=== PATIENT | female | born 1960 | race Caucasian/White ===

== ENCOUNTER 2016-09-10 07:05 | Day surgery (SDC) | payer OTHER ==
[~2016-09-10] VITALS: Ht 162.6 cm; Wt 74.8 kg
[~2016-09-10 07:05] MED LIST: 0.9% Sodium Chloride 1,000 ML IV SCH; ASPI-973 PO; CHOL10008 PO; OMEG-38 PO; OMEG500C PO; ONDA4SOL2 PO; SIMV10TA4 PO; Sodium Chloride LOK Flush 10 mL Syringe IV PRN; fentaNYL-PF 50 mCg/mL 2 mL Inj IVPUSH PRN
[2016-09-10 07:37] VITALS: BP 110/69; PULSE 70; RESP 14; O2SAT 100
[2016-09-10 08:34] VITALS: BP 96/65; PULSE 57; RESP 16; O2SAT 100
[2016-09-10 08:44] VITALS: BP 116/76; PULSE 46; RESP 16; O2SAT 99
[2016-09-10 08:53] VITALS: BP 119/70; PULSE 40; RESP 16; O2SAT 100
--- NOTE | 2016-09-10 08:58 | ENDO ---
[address] [address] ENDOSCOPY PROCEDURE PATIENT: NIXON PRITCHETT : 1960 MR#: [id number] ADMIT: 09/10/2016 JOB ID: [id number] PRIMARY PROVIDER: Stef Abbott MD PROCEDURE: Colonoscopy with cold forceps polypectomy and hot snare polypectomy. INDICATIONS: A 56-year-old female with a personal history of adenomatous colon polyp, returning for surveillance. EQUIPMENT: Joppel-H190-L. SEDATION: 5 mg Versed, 100 mcg fentanyl. COMPLICATIONS: None identified. BOWEL PREPARATION: Fair. PROCEDURE INFORMATION: After the risks and benefits were explained, written and verbal informed consent was obtained. The patient was brought into the endoscopy suite and placed into the left lateral decubitus position. Sedation was achieved using the above-stated medications with the addition of oxygen via nasal cannula. A digital rectal examination was accomplished. No significant pathology appreciated. The scope was introduced into the rectum and advanced to the cecum as identified by the appendiceal orifice and ileocecal valve. The scope was slowly withdrawn to carefully examine the mucosa for any defects or lesions. Multiple direct views were made through the dentate line for exclusion of pathology. The colon was decompressed, the scope removed from the patient who tolerated the procedure well. FINDINGS: There was a diminutive polyp in the mid colon, probably somewhere in the transverse, removed with cold forceps. There was a much more challenging flat polyp opposite the ileocecal valve in the proximal cecum that was addressed using the Jumbo snare. This polyp was a little difficult to fully define and quite subtle visually. It was extremely difficult to get the snare on top of this area, in that the patient had a fairly redundant bowel and we had a lot of extra scope in to arrive at this location. At the end of our polypectomy, it was not possible to say with complete confidence that all of it had been removed. This polyp probably measured somewhere in the 8-10 mm range in maximum dimension. ENDOSCOPIC DIAGNOSES: 1. Cecal polyp. 2. Colon polyp. RECOMMENDATIONS: 1. Await histopathology. 2. If the polyp in the cecum is confirmed adenomatous, I would recommend a repeat colonoscopy in about six months to confirm that this has been completely resected (again, this was just opposite the ileocecal valve opening in the proximal cecum).
[2016-09-10 10:50] LABS: Magnesium 2.1 mg/dL (1.6-2.6)
--- NOTE | 2016-09-11 15:00 | PATH ---
SURGICAL PATHOLOGY Attending Physician:Latoya Shea CASE STATUS: Signed Out PATIENT NAME: NIXON PRITCHETT PID: [id number] : 1960 DATE COLLECTED:09/10/2016 21:40 SPECIMEN: 1: Colon, Biopsy 2: Colon, Biopsy CLINICAL HISTORY: PERSONAL HISTORY OF POLYPS 1). COLON POLYP 2). CECAL POLYP X1 FINAL DIAGNOSIS: 1. Colon Polyp: Tubular adenoma. 2. Cecal Polyp x1: Benign polypoid mucosa with focal active inflammation. Negative for dysplasia and malignancy. Multiple microscopic levels examined. ICD10: D12.6 K52.9 GROSS DESCRIPTION: The specimen is received in two formalin filled containers labeled with the patient's name. 1). The specimen is sublabeled "colon polyp" and consists of a 0.2 x 0.2 x 0.2 CM portion of tissue which is entirely submitted in cassette 1A. 2). The specimen is sublabeled "cecal polyp" and consists of a 0.6 x 0.4 x 0.3 CM portion of tissue which is entirely submitted an cassette 2A. 09/10/2016 [facility] MICRO DESCRIPTION: Please see diagnosis. ICD-9 CODES: CPT CODES: 1: 50615 2: 45827 Electronically Signed Out Jill Toney MD [facility] [address], [place] [address] Technical component performed at [facility], [address] [place] [address] [address], [place], [address]
== END 2016-09-10 23:59 | disposition home or self-care (01) ==
LOC: END 07:05
PROVIDERS: ATTEND Internal Medicine Gastroenterology
DX: Z12.11 Encounter for screening for malignant neoplasm of colon (principal); D12.3 Benign neoplasm of transverse colon; K63.5 Polyp of colon; Z86.010 Personal history of colon polyps; E78.2 Mixed hyperlipidemia; F41.8 Other specified anxiety disorders; E80.4 Gilbert syndrome; Z79.82 Long term (current) use of aspirin
CPT/HCPCS: 36415; 45380; 45385; 80048; 83735; 93005; 99153; G0500; J7030